=== PATIENT | male | born 1980 | race Caucasian/White ===

== ENCOUNTER 2024-02-11 09:50 | Emergency (ER) | payer BC ==
[~2024-02-11] VITALS: Ht 185.4 cm; Wt 83.9 kg
[2024-02-11 09:51] VITALS: BP 116/82; PULSE 85; RESP 20; TEMP 97.9; O2SAT 97
[2024-02-11 10:43] VITALS: BP 121/71; PULSE 77; RESP 16; TEMP 98; O2SAT 99
== END 2024-02-11 10:43 | disposition home or self-care (01) ==
LOC: MED 09:50
DX: S86.001A Unspecified injury of right Achilles tendon, initial encounter (principal); Z98.890 Other specified postprocedural states; Z91.040 Latex allergy status; X58.XXXA Exposure to other specified factors, initial encounter; Y92.310 Basketball court as the place of occurrence of the external cause; Y93.67 Activity, basketball; Y99.8 Other external cause status
CPT/HCPCS: 29515; 99283